=== PATIENT | male | born 1945 | race Caucasian/White ===

== ENCOUNTER → 2020-07-26 | Outpatient (CLI) | payer MEDICARE ==
[~2020-07-26] MED LIST: ATOR20TA37 PO; CLOP75TA PO; CYCL5TAB PO; DULO20CA45 PO; ERGO500017 IM; FENO145T32 PO; FINA5TAB4 PO; FURO20TA3 PO; GABA-827 PO; HYDR25TA6 PO; INSU100C SQ; INSU100V13 SQ; LISI40TA9 PO; METO50TA82 PO; MIRA25TA PO; MORPHINE PO; OXYB15TA18 PO; OXYC5CAP2 PO; PANT40TA6 PO; POTA20TA6 PO; PRED10TA PO; PREG75CA PO; SIMV20TA19 PO; TAMS-11 PO
== END | disposition home or self-care (01) ==
LOC: CFH 12:48
PROVIDERS: ATTEND Otolaryngology
DX: J34.89 Other specified disorders of nose and nasal sinuses (principal)
CPT/HCPCS: 70486

== ENCOUNTER 2020-07-30 07:57 | Outpatient (CLI) | payer MEDICARE ==
[~2020-07-30 07:57] MED LIST changes: -AMLO2.5T5 PO; -ATOR10TA9 PO; -DULO60CA7 PO; -INSU100C5 SQ-INSULIN; -INSU100V8 SQ; -METO-93 PO; -MORP-29 PO; -OXYC1TAB14 PO; -PIOG30TA68 PO; -POTA20TA89 PO; -PREG50CA PO
[2020-07-30] MEDS ORDERED: INSU100V8 SQ (12:20)
[2020-07-30] MEDS ORDERED: PREG50CA PO (12:20)
[2020-07-30] MEDS ORDERED: INSU100C5 SQ-INSULIN (12:20)
[2020-07-30] MEDS ORDERED: FURO20TA3 PO (12:20)
[2020-07-30] MEDS ORDERED: HYDR25TA6 PO (12:20)
[2020-07-30] MEDS ORDERED: MORP-29 PO (12:20)
[2020-07-30] MEDS ORDERED: PIOG30TA68 PO (12:20)
[2020-07-30] MEDS ORDERED: AMLO2.5T5 PO (12:20)
[2020-07-30] MEDS ORDERED: METO-93 PO (12:20)
[2020-07-30] MEDS ORDERED: ATOR10TA9 PO (12:20)
[2020-07-30] MEDS ORDERED: OXYC1TAB14 PO (12:20)
[2020-07-30] MEDS ORDERED: DULO60CA7 PO (12:20)
[2020-07-30] MEDS ORDERED: POTA20TA89 PO (12:21)
== END 2020-07-30 23:59 | disposition home or self-care (01) ==
LOC: ROC 07:57
PROVIDERS: ATTEND Radiology Radiation Oncology
DX: C30.0 Malignant neoplasm of nasal cavity (principal); I11.0 Hypertensive heart disease with heart failure; I50.32 Chronic diastolic (congestive) heart failure; J96.10 Chronic respiratory failure, unspecified whether with hypoxia or hypercapnia; J44.9 Chronic obstructive pulmonary disease, unspecified; E11.40 Type 2 diabetes mellitus with diabetic neuropathy, unspecified; E78.5 Hyperlipidemia, unspecified; F32.9 Major depressive disorder, single episode, unspecified; Z99.81 Dependence on supplemental oxygen; Z79.899 Other long term (current) drug therapy; Z87.891 Personal history of nicotine dependence
CPT/HCPCS: 99214; G0463

== ENCOUNTER → 2020-07-30 | Outpatient (CLI) | payer MEDICARE ==
[~2020-07-30] MED LIST changes: +AMLO2.5T5 PO; +ATOR10TA9 PO; +DULO60CA7 PO; -ERGO500017 IM; +ERGO500017 PO; +INSU100C5 SQ-INSULIN; +INSU100V8 SQ; +METO-93 PO; +MORP-29 PO; +OXYC1TAB14 PO; +PIOG30TA68 PO; +POTA20TA89 PO; +PREG50CA PO
[2020-07-30 13:08] LABS: ALANINE AMINOTRANSFERASE 23 U/L (12-78); ALBUMIN 3.7 g/dL (3.4-5.0); ANION GAP 7 mmol/L (5-15); CHLORIDE 110 mmol/L (98-107); CREATININE 1.97 mg/dL (0.7-1.3)
[2020-07-30 13:10] LABS: ALKALINE PHOSPHATASE 60 U/L (45-117); BILIRUBIN,TOTAL 0.3 mg/dL (0.2-1.0)
== END | disposition home or self-care (01) ==
LOC: STAR 11:38
PROVIDERS: ATTEND Otolaryngology
DX: Z01.812 Encounter for preprocedural laboratory examination (principal); J34.89 Other specified disorders of nose and nasal sinuses; J34.2 Deviated nasal septum; Z20.822 Contact with and (suspected) exposure to COVID-19
CPT/HCPCS: 36415; 80053; U0003

== ENCOUNTER 2020-08-03 07:43 | Day surgery (SDC) | payer MEDICARE ==
[~2020-08-03] VITALS: Ht 167.6 cm; Wt 83.8 kg
[~2020-08-03 07:43] MED LIST changes: +AMLO2.5T5 PO; +ATOR10TA9 PO; +DULO60CA7 PO; +INSU100C5 SQ-INSULIN; +INSU100V8 SQ; +METO-93 PO; +MORP-29 PO; +OXYC1TAB14 PO; +PIOG30TA68 PO; +POTA20TA89 PO; +PREG50CA PO
[2020-08-03] MEDS ORDERED: LABETALOL 5MG/ML, 20ML IV PRN (08:00)
[2020-08-03] MEDS ORDERED: EPHEDRINE 50 MG/ML, 1ML IVPush PRN (08:00)
[2020-08-03] MEDS ORDERED: PROMETHAZINE 25 MG/ML, 1ML IVPush PRN (08:00)
[2020-08-03] MEDS ORDERED: HYDROmorphone 1 MG/ML, 1ML INJ IVPush PRN (08:00)
[2020-08-03] MEDS ORDERED: OXYcodone 5 MG/5 ML ORAL.SOL UDC PO PRN (08:00)
[2020-08-03] MEDS ORDERED: ONDANSETRON 2MG/ML, 2ML IVPush PRN (08:00)
[2020-08-03] MEDS ORDERED: CHLORHEXIDINE 15 ML UDC PO ONE (09:00)
[2020-08-03] MEDS ORDERED: AMLODIPINE 2.5 MG TABLET PO ONE (09:00)
[2020-08-03] MEDS ORDERED: HYDROCHLOROTHIAZIDE 25 MG TABLET PO ONE (09:00)
[2020-08-03] MEDS ORDERED: AMLO2.5T5 PO (09:07)
[2020-08-03 09:08] VITALS: BP 215/72
[2020-08-03] MEDS ORDERED: ACETAMINOPHEN 500 MG TABLET ONE (09:15)
[2020-08-03] MEDS: LACTATED RINGERS 1,000 ML IV SCH ×2 (09:25→09:37)
[2020-08-03] MEDS ORDERED: ACETAMINOPHEN 500 MG TABLET PO ONE (09:30)
[2020-08-03] MEDS ORDERED: FENTANYL PF 250 MCG/5ML ONE (10:08)
[2020-08-03] MEDS ORDERED: BUPIVACAINE/PF 0.25% ONE (10:10)
[2020-08-03] MEDS ORDERED: EPINEPHRINE 1 MG/ML, 1ML ONE (10:10)
[2020-08-03] MEDS ORDERED: LIDOCAINE/PF 1%, 30ML ONE (10:30)
[2020-08-03] MEDS ORDERED: BACITRACIN OINT 500U/GM, 15 GM ONE (10:30)
[2020-08-03] MEDS ORDERED: OXYMETAZOLINE NASAL SPRAY 0.05%,30ML ONE (10:30)
[2020-08-03] MEDS ORDERED: KETOROLAC 30 MG/1 ML ONE (10:50)
[2020-08-03] MEDS ORDERED: METOPROLOL 1 MG/ML, 5ML ONE (11:00)
[2020-08-03] MEDS ORDERED: HYDROmorphone 1 MG/ML, 1ML INJ ONE ×2 (11:18→11:42)
[2020-08-03] MEDS ORDERED: DEXAMETHASONE 4 MG/ML, 1ML ONE (11:23)
[2020-08-03] MEDS ORDERED: PROPOFOL 10 MG/ML, 20ML ONE (11:23)
[2020-08-03] MEDS ORDERED: SUCCINYLCHOLINE 20 MG/ML, 10ML ONE (11:23)
[2020-08-03] MEDS ORDERED: ONDANSETRON 2MG/ML, 2ML ONE (11:23)
[2020-08-03] MEDS ORDERED: OXYcodone 5 MG/5 ML ORAL.SOL UDC ONE (13:44)
[2020-08-03] MEDS ORDERED: hydrALAzine 20 MG/ML, 1ML ONE (13:44)
[2020-08-03] MEDS ORDERED: FENTANYL PF 100 MCG/2ML ONE (13:44)
[2020-08-03] MEDS: FENTANYL PF 100 MCG/2ML IV PRN ×2 (13:50→14:20)
[2020-08-03] MEDS: hydrALAzine 20 MG/ML, 1ML IV PRN ×2 (13:52→14:15)
== END 2020-08-03 16:35 | disposition home or self-care (01) ==
LOC: OUT 07:43
PROVIDERS: ATTEND Otolaryngology
DX: C30.0 Malignant neoplasm of nasal cavity (principal); J34.2 Deviated nasal septum; E10.9 Type 1 diabetes mellitus without complications; I11.0 Hypertensive heart disease with heart failure; I69.354 Hemiplegia and hemiparesis following cerebral infarction affecting left non-dominant side; I50.9 Heart failure, unspecified; J44.9 Chronic obstructive pulmonary disease, unspecified; Z79.02 Long term (current) use of antithrombotics/antiplatelets; Z79.899 Other long term (current) drug therapy; Z85.118 Personal history of other malignant neoplasm of bronchus and lung; Z87.891 Personal history of nicotine dependence; Z88.8 Allergy status to other drugs, medicaments and biological substances
CPT/HCPCS: 15260; 15261; 21235; 30117; 30520; 82962; 88304; 88305; 88311; 88331; J0171; J0330; J0360; J1100; J1170; J1885; J2405; J2704; J3010; J7120

== ENCOUNTER → 2020-11-12 | Outpatient (CLI) | payer MEDICARE ==
[~2020-11-12] MED LIST changes: +METO25TA35 PO
[2020-11-12 11:33] LABS: ALANINE AMINOTRANSFERASE 27 U/L (12-78); ALBUMIN 3.8 g/dL (3.4-5.0); ANION GAP 5 mmol/L (5-15); CALCIUM 8.8 mg/dL (8.5-10.1); CHLORIDE 107 mmol/L (98-107); CREATININE 0.99 mg/dL (0.7-1.3)
[2020-11-12 11:35] LABS: ALKALINE PHOSPHATASE 63 U/L (45-117); BILIRUBIN,TOTAL 0.6 mg/dL (0.2-1.0); TOTAL PROTEIN 7.2 g/dL (6.4-8.2)
== END | disposition home or self-care (01) ==
LOC: STAR 10:21
PROVIDERS: ATTEND Otolaryngology
DX: Z01.818 Encounter for other preprocedural examination (principal); C30.0 Malignant neoplasm of nasal cavity; Z20.822 Contact with and (suspected) exposure to COVID-19
CPT/HCPCS: 36415; 80053; 93005; U0003; U0005

== ENCOUNTER 2020-11-17 13:32 | Day surgery (SDC) | payer MEDICARE ==
[~2020-11-17] VITALS: Ht 170.2 cm; Wt 88.9 kg
[2020-11-17] MEDS ORDERED: EPINEPHRINE 1 MG/ML, 1ML ONE ×2 (13:57→13:59)
[2020-11-17] MEDS ORDERED: OXYMETAZOLINE NASAL SPRAY 0.05%,30ML ONE ×2 (13:57→17:34)
[2020-11-17] MEDS ORDERED: LIDOCAINE/PF 1%, 30ML ONE ×2 (13:57→18:13)
[2020-11-17] MEDS ORDERED: BACITRACIN OINT 500U/GM, 15 GM ONE (13:57)
[2020-11-17] MEDS ORDERED: MINERAL OIL 10 ML VIAL MC ONE (13:59)
[2020-11-17] MEDS ORDERED: EPINEPHRINE TOPICAL SOLN 1 MG/ML, 30ML ONE (14:00)
[2020-11-17] MEDS ORDERED: MORPHINE PO (14:16)
[2020-11-17] MEDS ORDERED: [UNRECOGNIZED DRUG - CODE] PO (14:16)
[2020-11-17] MEDS ORDERED: OXYC-293 PO (14:16)
[2020-11-17 14:19] VITALS: BP 156/82
[2020-11-17] MEDS ORDERED: CHLORHEXIDINE 15 ML UDC ONE (14:20)
[2020-11-17] MEDS ORDERED: CHLORHEXIDINE 15 ML UDC PO ONE (14:30)
[2020-11-17] MEDS ORDERED: LACTATED RINGERS 1,000 ML IV SCH (14:30)
[2020-11-17] MEDS ORDERED: FENTANYL PF 250 MCG/5ML ONE (16:08)
[2020-11-17] MEDS ORDERED: DEXAMETHASONE 4 MG/ML, 1ML ONE (16:09)
[2020-11-17] MEDS ORDERED: CEFAZOLIN 1,000 MG ONE (16:13)
[2020-11-17] MEDS ORDERED: EPHEDRINE 50 MG/ML, 1ML ONE (16:38)
[2020-11-17] MEDS ORDERED: hydrALAzine 20 MG/ML, 1ML IV PRN (17:00)
[2020-11-17] MEDS ORDERED: ONDANSETRON 2MG/ML, 2ML IVPush PRN (17:00)
[2020-11-17] MEDS ORDERED: PROMETHAZINE 25 MG/ML, 1ML IVPush PRN (17:00)
[2020-11-17] MEDS ORDERED: HYDROmorphone 1 MG/ML, 1ML INJ IVPush PRN (17:00)
[2020-11-17] MEDS ORDERED: FENTANYL PF 100 MCG/2ML IV PRN (17:00)
[2020-11-17] MEDS ORDERED: OXYcodone 5 MG/5 ML ORAL.SOL UDC PO PRN (17:00)
[2020-11-17] MEDS ORDERED: LABETALOL 5MG/ML, 20ML IV PRN (17:00)
[2020-11-17] MEDS ORDERED: morphine SULFATE 10 MG/ML, 1ML IVPush PRN (17:00)
[2020-11-17] MEDS ORDERED: ROCURONIUM 10MG/ML,5ML ONE (17:22)
[2020-11-17] MEDS ORDERED: PROPOFOL 10 MG/ML, 20ML ONE (17:22)
[2020-11-17] MEDS ORDERED: ONDANSETRON 2MG/ML, 2ML ONE (17:23)
[2020-11-17] MEDS ORDERED: FENTANYL PF 100 MCG/2ML ONE (17:23)
[2020-11-17] MEDS ORDERED: hydrALAzine 20 MG/ML, 1ML ONE (18:53)
== END 2020-11-17 21:45 | disposition home or self-care (01) ==
LOC: OR 13:32
PROVIDERS: ATTEND Otolaryngology
DX: C44.321 Squamous cell carcinoma of skin of nose (principal); I11.0 Hypertensive heart disease with heart failure; I50.9 Heart failure, unspecified; I25.10 Atherosclerotic heart disease of native coronary artery without angina pectoris; Z79.4 Long term (current) use of insulin; Z79.891 Long term (current) use of opiate analgesic; Z79.899 Other long term (current) drug therapy
CPT/HCPCS: 15260; 15261; 30420; 82962; 88305; 88307; 88311; 88331; J0171; J0360; J0690; J1100; J2405; J2704; J3010; J7120

== ENCOUNTER 2020-11-18 01:49 | Emergency (ER) | payer MEDICARE ==
[~2020-11-18 01:49] MED LIST changes: +OXYC-293 PO; +[UNRECOGNIZED DRUG - CODE] PO
[2020-11-18 05:54] VITALS: BP 165/55
== END 2020-11-18 06:40 | disposition home or self-care (01) ==
LOC: ED 06:20
DX: R04.0 Epistaxis (principal); I11.0 Hypertensive heart disease with heart failure; I50.9 Heart failure, unspecified; J44.9 Chronic obstructive pulmonary disease, unspecified; Z87.891 Personal history of nicotine dependence; Z85.828 Personal history of other malignant neoplasm of skin
CPT/HCPCS: 30901; 99284

== ENCOUNTER 2020-12-31 08:07 | Outpatient (CLI) | payer MEDICARE | END 2020-12-31 23:59 | disposition home or self-care (01) | LOC: ROC 08:07 | PROVIDERS: ATTEND Radiology Radiation Oncology | DX: C30.0 Malignant neoplasm of nasal cavity (principal); I11.0 Hypertensive heart disease with heart failure; I50.9 Heart failure, unspecified; J44.9 Chronic obstructive pulmonary disease, unspecified; E11.40 Type 2 diabetes mellitus with diabetic neuropathy, unspecified; Z79.4 Long term (current) use of insulin; Z79.891 Long term (current) use of opiate analgesic; Z87.891 Personal history of nicotine dependence; Z79.899 Other long term (current) drug therapy | CPT/HCPCS: 99213; G0463 ==